=== PATIENT | male | born 1945 | race Caucasian/White ===

== ENCOUNTER 2016-10-06 07:30 | Day surgery (SDC) | payer MEDICARE, OTHER ==
[2016-09-27 16:37] LABS: BASOPHILS 0.3 %; BASOPHILS ABSOLUTE 0.02 10/3/uL (0.0-0.16); EOSINOPHILS 4.9 %; EOSINOPHILS ABSOLUTE 0.36 10/3/uL (0.0-0.53); HEMATOCRIT 47.2 % (40.0-51.0); HEMOGLOBIN 15.9 g/dL (13.6-17.8); IMMATURE GRANULOCYTES 0.1 %; IMMATURE GRANULOCYTES ABSOLUTE 0.01 10/3/uL (0.0-0.11); LYMPHOCYTES 38.7 %; LYMPHOCYTES ABSOLUTE 2.87 10/3/uL (0.67-4.30); MEAN CORPUS HGB CONC 33.7 g/dL (32.0-36.0); MEAN CORPUSCULAR HEMOGLOB 32.4 pg (26.0-34.0); MEAN CORPUSCULAR VOLUME 96.3 fL (80-100); MEAN PLATELET VOLUME 9.9 fL (9.2-13.0); MONOCYTES ABSOLUTE 0.67 10/3/uL (0.21-1.20); NEUTROPHILS ABSOLUTE 3.49 10/3/uL (2.02-8.40); PLATELET COUNT 208 10/3/uL (150-400); WHITE BLOOD CELLS 7.4 10/3/uL (4.5-10.5)
[2016-09-27 16:38] LABS: MANUAL DIFF NO %
[2016-09-27 16:57] LABS: A/G RATIO 1.1 (0.7-1.9); ALBUMIN 3.3 G/DL (3.5-5.0); ALKALINE PHOSPHATASE 93 U/L (45-117); BUN (BLOOD UREA NITROGEN) 17 MG/DL (6-23); CALCIUM, SERUM 8.2 MG/DL (8.5-10.4); CHLORIDE, SERUM 109 MMOL/L (96-112); CO2 (CARBON DIOXIDE) 26 MMOL/L (24-34); CREATININE 1.01 MG/DL (0.70-1.30); GFR AFRICAN AMERICAN 87 ML/MIN (>=60); GFR NON AFRICAN AMERICAN 75 ML/MIN (>=60); GLUCOSE, SERUM 73 MG/DL (60-99); SGOT(AST) 29 U/L (5-40); SGPT(ALT) 46 U/L (5-65); SODIUM, SERUM 144 MMOL/L (135-148); TOTAL BILIRUBIN 0.7 MG/DL (0-1.2); TOTAL PROTEIN 6.3 G/DL (6.0-8.5)
--- NOTE | ~2016-10-06 | OP ---
[facility] [id number] [place]. [address] NAME: ELISE ARTEAGA : 47 [place] [facility] [place] [id number] AGE: 71 ADM/REG DATE : 10/06/16 MR#: [id number] REPORT SERV DATE: 10/06/16 DICTATED BY: DEMETRIO PATEL III DATE: 10/06/16 REPORT STATUS : Draft TRANSCRIBED BY: MODL DATE: 10/06/16 DATE OF PROCEDURE: 10/06/2016 PREOPERATIVE DIAGNOSIS: Symptomatic cholelithiasis and cholecystitis. POSTOPERATIVE DIAGNOSIS: Symptomatic cholelithiasis and cholecystitis, severe cholecystitis. PROCEDURE: Laparoscopic cholecystectomy. SURGEON: Dr. Demetrio Patel. ANESTHESIA: General with intubation. COMPLICATIONS: None. ESTIMATED BLOOD LOSS: Less than 30 mL. SPECIMENS: Gallbladder. DRAINS: None. LAP AND SPONGE COUNT: Correct x3. BRIEF HISTORY: This 71-year-old male presented with evidence for symptomatic cholelithiasis and cholecystitis. It was felt that laparoscopic cholecystectomy, possible laparotomy, was indicated. This procedure, the risks, benefits and alternatives, including not limited to the risk for bleeding, infection, common bile duct injury, bile leak, retained common bile duct stone, enterotomy, or injury to any abdominal structure, the definite possible need for laparotomy, possible persistence of his symptoms, unrelieved by surgery, the possibility of postoperative diarrhea or incisional hernia, and unforeseen complications including deep venous thrombosis, pulmonary embolus, myocardial infarction, stroke, pneumonia, and , were fully and completely explained to the patient and his family at length prior to surgery. The fact that this was a major operation with risk for major morbidity and mortality and no guarantee for relief of his symptoms were explained. The expected length of recovery of both open and laparoscopic procedures was explained. The patient had questions which were answered. He fully understood the risks and agreed to surgery as planned. FINDINGS: The patient had evidence for severe gallbladder disease. The gallbladder hammer were markedly thickened, inflamed, and there were dense inflammatory adhesions between the omentum and the gallbladder consistent with severe cholecystitis. The liver and remainder of the upper abdomen were otherwise unremarkable as far as we could determine through the laparoscope. PROCEDURE IN DETAIL: After being appropriately identified and after discussing the risks of surgery with the patient and his family in the preoperative area, the patient was taken to [id number] [place]. [address] NAME: ELISE ARTEAGA : 47 [place] [facility] [place]#: [id number] AGE: 71 ADM/REG DATE : 10/06/16 MR#: [id number] REPORT SERV DATE: 10/06/16 DICTATED BY: DEMETRIO PATEL III DATE: 10/06/16 REPORT STATUS : Draft TRANSCRIBED BY: MODL DATE: 10/06/16 the operating room and placed in the supine position on the operating room table. General anesthesia was administered. He was intubated without difficulty. The abdomen was prepped and draped sterilely in the usual fashion. After an appropriate "time-out" [facility], a small transverse incision was made below the umbilicus. The skin and fascia on either side was elevated with towel clips. A Veress needle was placed through the incision into the peritoneal cavity. Correct position of the needle in the peritoneal cavity was confirmed by the hanging drop test. The abdominal cavity was then insufflated to about 13 mmHg with carbon dioxide. Correct position of air in the peritoneal cavity was confirmed by palpation. The Veress needle was removed and replaced with 10-mm trocar. The laparoscope was placed through this. The patient was placed in the reverse Trendelenburg position and to his left. A second 10-mm trocar was placed just below the xiphoid process, to the right of the falciform ligament, under direct vision with the laparoscope. Two 5-mm trocars were placed along the right subcostal margin, one in the midaxillary line, the other in the midclavicular line. These were also placed under direct vision with the laparoscope. The upper abdomen was inspected. The gallbladder appeared to be chronically diseased. The gallbladder hammer were thickened and inflamed consistent chronic cholecystitis. The liver and remainder of the upper abdomen were otherwise unremarkable as far as we could determine through the laparoscope. The appropriate instruments were placed through the trocars. The gallbladder was grasped and the infundibulum of the gallbladder was retracted laterally and inferiorly so as to expose the triangle of Calot. Using careful sharp and blunt dissection, the cystic duct was carefully and meticulously defined proximally and distally. The cystic duct was fairly long. The junction of the cystic duct with the common bile duct was appreciated, but not skeletonized. The cystic artery was similarly defined proximally and distally. The fibrous and fatty tissue between these structures was divided so as to clearly identify the critical angle. Once these structures were clearly defined, the cystic duct was clipped using two clips on the common bile duct side and one on the gallbladder side, all placed as close to the gallbladder as possible, taking care not encroach upon or injure the common bile duct in any way. The cystic duct was then divided between these clips as close to the gallbladder as possible. We elected not to perform a cholangiogram because there was no preoperative or intraoperative evidence for biliary dilatation and because the patient's preoperative liver enzymes were normal and because his biliary anatomy was clearly defined. Again, the structure was not divided or clipped until the critical angle and triangle of Calot had been clearly identified. The cystic artery was then similarly clipped and divided as close to the gallbladder as possible. Using the spatula and the cautery, the gallbladder was carefully dissected from the liver bed. This went very well. Before the gallbladder was completely removed, the gallbladder bed and portal areas were irrigated numerous times with saline. The saline was aspirated dry. This process was repeated several times until hemostasis was meticulously and thoroughly assured in all areas. It was also assured that the clips in the portal areas were in good position and there was no extravasation of bile from any accessory bile duct. Once this was assured, the gallbladder was completely dissected away from the liver and placed in the Endopouch. The liver bed was elevated, irrigated, and inspected for meticulous and thorough hemostasis and for absence of any biliary extravasation and to be certain that the clips were in good position. Once this was assured, the gallbladder and Endopouch were brought out through the infraumbilical incision and placed in the laparoscope through the subxiphoid port. The fascia of the infraumbilical incision was closed with 0 Vicryl suture. The lateral two trocars were removed. These two lower trocar sites were inspected on the underside for Record [facility] [address] [id number] NAME: ELISE ARTEAGA : 47 [place] [facility] [place] PAT#: [id number] AGE: 71 ADM/REG DATE : 10/06/16 MR#: [id number] REPORT SERV DATE: 10/06/16 DICTATED BY: JORGE GRIFFITHDEMETRIO MARNIE DATE: 10/06/16 REPORT STATUS : Draft TRANSCRIBED BY: CHARO DATE: 10/06/16 hemostasis with the laparoscope. Once this was assured, the subxiphoid trocar was removed under direct vision with the laparoscope to assure hemostasis in this incision. The air was removed from the peritoneal cavity through this incision. The skin incisions were inspected for hemostasis, they were closed with running subcuticular 4-0 Monocryl stitches. They were injected with one-half percent Marcaine. Dressings were applied. Anesthesia was reversed and the patient was taken to the recovery room in stable condition. The patient tolerated the procedure well. His family was informed of the results of surgery. The patient was discharged later when he was stable, comfortable and tolerating liquids and able to void and ambulate. His family was advised that he should remain on a liquid diet today and advance this as tolerated to a regular diet tomorrow. He should keep wounds clean and dry for 48 hours and that he should not drive for 3-4 days after surgery or while using narcotics or Phenergan. They were advised that he should resume his usual medications. He was given a prescription for a narcotic and Phenergan, which he was advised to not take while driving. CARLITO/CHARO Demetrio Patel III, M.D. / [id number] CC: Manjeet Ayala III, II, M.D.
--- NOTE | ~2016-10-06 | PREOPHP ---
PreOp History and Physical [address] [address] NAME: ELISE ARTEAGA : 47 STATUS : REG [facility] [place] PAT#: [id number] AGE: 71 ADM/REG DATE : 10/06/16 MR#: [id number] REPORT SERV DATE: 10/06/16 DICTATED BY: DEMETRIO CALLAHAN III DATE: 09/24/16 REPORT STATUS : Draft TRANSCRIBED BY: MODTalha DATE: 09/24/16 HISTORY OF PRESENT ILLNESS: This 71-year-old male comes to the operating room for laparoscopic cholecystectomy, possible laparotomy, for symptomatic cholelithiasis and cholecystitis. The patient recently had an episode of severe biliary colic. This is associated with severe epigastric pain and right upper quadrant abdominal pain, requiring evaluation in the emergency room. The patient has gallstones and felt to have symptomatic cholelithiasis and cholecystitis. He had similar episode of biliary colic 6 years ago. He comes to the operating room now for laparoscopic cholecystectomy, possible laparotomy. PAST MEDICAL HISTORY: 1. Hyperlipidemia. 2. Gastroesophageal reflux disease. 3. Prostatic hypertrophy. 4. Obstructive sleep apnea. 5. Hypertension. MEDICATIONS: Aspirin, Avodart, losartan, pravastatin, zolpidem, Ambien, melatonin, Zantac. ALLERGIES: NONE. PAST SURGICAL HISTORY: Status post mitral valve repair in 2015. FAMILY HISTORY: Positive for cancer. SOCIAL HISTORY: No history of tobacco use. The patient has occasional history of alcohol use. REVIEW OF SYSTEMS: The patient complains of back pain. His 14-point review of systems is otherwise unremarkable. PHYSICAL EXAMINATION: GENERAL: This is a male, in no acute distress. He is alert and oriented x3. VITAL SIGNS: Blood pressure 116/76, pulse 80, temperature 97.7. HEENT: Unremarkable. CRANIAL NERVES: 2 through 12 normal. LUNGS: Clear. CARDIAC: Normal. ABDOMEN: Soft, nontender except for mild epigastric tenderness. EXTREMITIES: Normal. LABORATORY DATA: Gallbladder ultrasound confirms gallstones. PreOp History and Physical [address] [address] NAME: ELISE ARTEAGA : 47 STATUS : REG [facility] [place] PAT#: [id number] AGE: 71 ADM/REG DATE : 10/06/16 MR#: [id number] REPORT SERV DATE: 10/06/16 DICTATED BY: DEMETRIO CALLAHAN III DATE: 09/24/16 REPORT STATUS : Draft TRANSCRIBED BY: CHARO DATE: 09/24/16 ASSESSMENT: 1. 71-year-old male with symptomatic cholelithiasis, cholecystitis, and recent episode of acute biliary colic, requiring evaluation in the emergency room. 2. History of mitral valve repair. 3. Hyperlipidemia. 4. Gastroesophageal reflux disease. 5. Obstructive sleep apnea. 6. Hypertension. PLAN: The patient comes to the operating room now for laparoscopic cholecystectomy, possible laparotomy. This procedure, the risks, benefits, and alternatives, including not limited to the risk for bleeding, infection, common bile duct injury, bile leak, retained common bile stone, enterotomy, injury to any abdominal structure, the definite possible need for laparotomy, possible persistence of his symptoms unrelieved by surgery, positive postoperative diarrhea or incisional hernia, and unforeseen complications including deep venous thrombosis, pulmonary embolus, myocardial infarction, stroke, pneumonia, and , have been explained to the patient prior to surgery. The fact that this is a major operation with risk for major morbidity and mortality, no guarantee for relief of his symptoms was explained. The expected length of recovery with open laparoscopic procedures has been explained. The option of nonoperative management has been offered to the patient but declined. The patient's questions have been answered. He clearly understands the risks and agrees to surgery as planned. RHJ/CHARO Demetrio Callahan III, M.D. / [id number] CC: Manjeet Lawrence III, II, M.D.
[~2016-10-06 07:30] MED LIST: AMB10 PO; ASAB PO; AVODART PO; CIALIS20 MG PO; COZ25 PO; CYANO1000T PO; MELATONIN5 M1 PO; MIRALAX POWDER1 PKT PO; PRAV10 PO; PRILO PO; PRILOSEC40 MG PO; PROSCAR5 PO; SENTAB PO; VITAMIN B-122500 MCG SL
[2016-10-06 14:50] LABS: HEMATOCRIT 45.3 % (40.0-51.0); HEMOGLOBIN 15.5 g/dL (13.6-17.8)
== END 2016-10-06 15:41 | disposition home or self-care (01) ==
LOC: SDC 07:30
PROVIDERS: Surgery
PROC: 0FT44ZZ Resection of Gallbladder, Percutaneous Endoscopic Approach (ICD-10-PCS; principal; 2016-10-06 09:00)
DX: K80.10 Calculus of gallbladder with chronic cholecystitis without obstruction (principal); E78.5 Hyperlipidemia, unspecified; K21.9 Gastro-esophageal reflux disease without esophagitis; G47.33 Obstructive sleep apnea (adult) (pediatric); I25.10 Atherosclerotic heart disease of native coronary artery without angina pectoris; I10 Essential (primary) hypertension; Z79.82 Long term (current) use of aspirin; Z79.899 Other long term (current) drug therapy; Z98.890 Other specified postprocedural states
CPT/HCPCS: 71020; 80053; 85014; 85018; 85025; 88304; 93005; A9270-GY; J0690; J1170; J1885; J2405; J2710; J3010